=== PATIENT | male | born 1995 | race Caucasian/White ===

== ENCOUNTER 2025-08-18 21:59 | Emergency (ER) | payer OTHER, SELFPAY ==
[2025-08-18 22:01] VITALS: BMI 53.8
[2025-08-18 22:31] VITALS: BP 149/90; PULSE 85; RESP 19; TEMP 36.9; O2SAT 96
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
== END 2025-08-18 22:56 | disposition home or self-care (01) ==
PROVIDERS: Emergency Provider Emergency Medicine; PCP Physician Assistant
DX: S01.511A Laceration without foreign body of lip, initial encounter (principal); Y04.2XXA Assault by strike against or bumped into by another person, initial encounter; Y93.89 Activity, other specified; Y92.199 Unspecified place in other specified residential institution as the place of occurrence of the external cause; Y99.0 Civilian activity done for income or pay
CPT/HCPCS: 99281

== ENCOUNTER 2025-09-01 13:42 | Emergency (ER) | payer OTHER, SELFPAY ==
[2025-09-01 13:43] VITALS: BMI 51.3
[2025-09-01 13:51] VITALS: BP 146/92; PULSE 80; RESP 18; TEMP 36.8; O2SAT 95
--- NOTE | 2025-09-01 14:06 | PD.EDHA ---
ED Headache RME/HPI General Chief Complaint: Headache Stated Complaint: BAD MIGRAINE SINCE LAST NIGHT Time Seen by Provider: 09/01/25 14:06 Source: patient Arrival date/time: 09/01/25 13:42 30-year-old male with a history of migraines presents to the emergency room with a chief complaint of a headache x 2 days Mode of arrival: ambulatory Limitations: no limitations Related Data Home Medications ?Medication ?Instructions ?Recorded ?Confirmed guselkumab 100 mg/mL subcutaneous 100 mg subcut UD 11/18/22 11/18/22 auto-injector (Tremfya) Previous Rx's ?Medication ?Instructions ?Recorded gabapentin 100 mg capsule 200 mg (2 x 100 mg) PO BID #120 11/20/22 caps topiramate 25 mg tablet 25 mg PO BID #70 tabs 11/20/22 Allergies Allergy/AdvReac Type Severity Reaction Status Date / Time No Known Allergies Allergy Verified 09/01/25 13:45 Review of Systems Review of Systems Systems Reviewed: All systems reviewed, normal except as documented Constitutional Constitutional: Reports system reviewed and no additional complaints, except as documented, Denies fatigue, Denies fever(s), Reports headache(s) and Denies weakness Eyes Eyes: Reports system reviewed and no additional complaints, except as documented, Denies blurry vision and Denies change in vision ENT Ears, Nose, Mouth, and Throat: Reports system reviewed and no additional complaints, except as documented, Denies otalgia, Reports headache(s), Denies nasal congestion, Denies throat swelling and Denies vertigo Cardiovascular Cardiovascular: Reports system reviewed and no additional complaints, except as documented, Denies chest pain, Denies dyspnea and Denies dyspnea on exertion Respiratory Respiratory: Reports system reviewed and no additional complaints, except as documented, Denies chest congestion, Denies cough, Denies dyspnea, Denies dyspnea on exertion and Denies wheezing Gastrointestinal Gastrointestinal: Reports system reviewed and no additional complaints, except as documented, Denies abdominal pain, Denies cramping, Denies nausea and Denies vomiting Genitourinary Genitourinary: Reports system reviewed and no additional complaints, except as documented, Denies dysuria and Denies hematuria Musculoskeletal Musculoskeletal: Reports system reviewed and no additional complaints, except as documented and Denies back pain Integumentary/Breasts Skin/Breast: Reports system reviewed and no additional complaints, except as documented and Denies wounds Neurologic Neurologic: Reports system reviewed and no additional complaints, except as documented, Denies confusion, Reports headache(s), Denies lack of coordination, Denies vertigo and Denies weakness Psychiatric Psychiatric: Reports system reviewed and no additional complaints, except as documented, Denies anxiety, Denies confusion, Denies depression, Denies paranoia, Denies suicidal ideation and Denies tactile hallucinations Endocrine Endocrine: Reports system reviewed and no additional complaints, except as documented and Denies fatigue Hematologic/Lymphatic Hematologic/Lymphatic: Reports system reviewed and no additional complaints, except as documented and Denies lymphadenopathy Allergic/Immunologic Allergic/Immunologic: Reports system reviewed and no additional complaints, except as documented, Denies throat swelling, Denies urticaria and Denies wheezing Past Medical History Past Medical History CARDIAC: Negative Congestive Heart Failure RESPIRATORY: Negative Chronic Obstructive Pulmonary Disease (COPD) GASTROINTESTINAL: Positive Obesity GENITOURINARY: Negative Renal Disease ENDOCRINE: Negative Diabetes Mellitus Type 1 or Diabetes Mellitus Type 2 Social History SMOKING STATUS: Never smoker ED Exam General Limitations: Present no limitations General appearance: Present alert and in no apparent distress Head Head exam: Present atraumatic Eye Eye exam: Present normal appearance, PERRL and EOMI ENT ENT exam: Present normal exam, normal oropharynx and mucous membranes moist Neck Neck exam: Present normal inspection, full ROM and trachea midline Chest Chest inspection: Present normal inspection and symmetric chest wall rise Respiratory Respiratory exam: Present normal lung sounds bilaterally Cardiovascular Cardiovascular exam: Present regular rate, normal rhythm and normal heart sounds Abdominal Exam Abdominal exam: Present soft and normal bowel sounds Extremities Exam Extremities exam: Present normal inspection and full ROM Back Exam Back exam: Present normal inspection and full ROM Neurological Exam Neurological exam: Present alert, oriented X3, CN II-XII intact, normal gait and reflexes normal Expanded Neurological Exam Patient oriented to: Present person, place and time Speech: Present fluid speech Cranial nerves: Normal: EOM function (II, III, IV, ) and facial sensation (V) Cerebellar function: Present normal gait Motor strength - LUE: 5/5 Motor strength - RUE: 5/5 Motor strength - LLE: 5/5 Motor strength - RLE: 5/5 Coma scale eye opening: spontaneous Coma scale motor response: obeys commands Coma scale verbal response: oriented Coma scale total: 15 Psychiatric Psychiatric exam: Present normal affect and normal mood Skin Skin exam: Present warm, dry, intact and normal color Course Quality Measures none Orders Category Date Time Status Ketorolac Inj [Toradol Inj] Med 09/01/25 14:05 Discontinued 60 mg IM X1 ONE Metoclopramide [Reglan] Med 09/01/25 14:05 Discontinued 10 mg PO X1 ONE Vital Signs Vital signs: Vital Signs Temperature 98.3 F 09/01/25 13:51 Pulse Rate 80 09/01/25 13:51 Respiratory Rate 18 09/01/25 13:51 Blood Pressure 146/92 H 09/01/25 13:51 Pulse Oximetry (%) 95 09/01/25 13:51 Oxygen Delivery Method Room Air 09/01/25 13:51 Headache MDM Narrative MDM Narrative:: 30-year-old male with a history of migraines presents to the emergency room with a chief complaint of a headache x 2 days Patient is hemodynamically stable and in no apparent distress Physical examination shows a normal neurological exam. Pupils are PERRLA EOMs are intact the patient denies any focal neurological deficits. The patient has a normal and steady gait. Patient has a history of migraines and states this feels similar to 1 of those episodes. Patient states he would like a shot of Toradol as this helped during his last episode. Shot of Toradol was given and the patient was discharged after having significant improvement Patient was discharged and educated to follow-up with primary care provider in the next 24 to 48 hours and return to the emergency room for any evidence of worsening signs or symptoms Patient data External records reviewed:: [facility] previous records Clinical information provided by:: patient Social determinants that could affect healthcare access:: none Patient has the following chronic illnesses:: No chronic illness How is presenting disease/condition affected by chronic disease/condition?: no chronic disease Evaluation data The following diagnostics were reviewed and interpreted by me:: lab results and radiology exam(s) Lab and/or radiology exams considered but not ordered:: Labs radiology exams considered and ordered Interpretation Summary: N/A Medications / Prescriptions Medications or Prescriptions considered but not ordered:: Medication given Medication administrations:: Medication Administration History Discontinued Medications Ketorolac Tromethamine (Ketorolac Inj 60 Mg/2 Ml Vial) 60 mg IM X1 ONE Stop: 09/01/25 14:06 Last Admin: 09/01/25 14:22 Dose: 60 mg Documented By: ARACELI Metoclopramide HCl (Metoclopramide 5 Mg Tablet) 10 mg PO X1 ONE Stop: 09/01/25 14:06 Last Admin: 09/01/25 14:21 Dose: 10 mg Documented By: MF Medication given Consultations Consultation(s) initiated? (list below): No Diagnosis Differential diagnosis headache: migraine, tension headache and headache Most likely diagnosis given after review of the tests above:: Headache Admission Indicated Admission indicated?: not indicated Admission Request Was there a request for admission?: No Disposition Plan Disposition Plan: Discharge Discharge Attestation Discharge Attestation: The patient and all family members were given an opportunity to ask questions and understood the discharge instructions. Discharge instructions specifically effects, indications for sooner follow up or return to the emergency department, and the expected course of current diagnosis. Patient condition: Stable Discharge Plan Plan Patient Disposition: HOME (Self Care) Discharge Disposition comment: Stable Prescriptions/Referrals Prescriptions/Med Rec: No Action Tremfya 100 mg/mL auto-injector 100 mg SUBCUT UD Rx Instructions: every 2 months, last dose 10/23 topiramate 25 mg Tablet 25 mg PO BID Qty: 70 0RF gabapentin 100 mg Capsule 200 mg PO BID Qty: 120 0RF Referrals: Beck Cox MD [Primary Care Provider, Family Practice] - In 1 week Problem List Clinical Impression: Headache Patient/Caregiver Discharge Instructions Education Materials: Self-Care for Headaches Additional Instructions: Please follow-up with your primary care provider in the next 24 to 48 hours For any evidence of worsening signs or symptoms return to the emergency room immediately Print Language: Upper Sorbian Stand Alone Forms: Dasia Award Info., Work/School Release, Patient Portal Info Letter
[2025-09-01] MEDS: METOCLOPRAMIDE 5 MG TABLET 10 MG PO (14:21)
[2025-09-01] MEDS: KETOROLAC INJ 60 MG/2 ML VIAL IM (14:22)
== END 2025-09-01 15:37 | disposition home or self-care (01) ==
PROVIDERS: Emergency Provider Nurse Practitioner Family; PCP Specialist
DX: R51.9 Headache, unspecified (principal)
CPT/HCPCS: 96372; 99282; J1885; A9270